=== PATIENT | male | born 1945 | race Caucasian/White ===

== ENCOUNTER 2019-06-01 20:17 | Inpatient (IN) ==
[2019-06-01 21:21] LABS: Apearance,Urine CLEAR (Clear); Bilirubin,Urine Negative (Negative); Blood, Urine Large mg/dL (Negative); Glucose,Urine (UA) >=500 mg/dL (Negative); Ketones,Urine Negative (Negative); Mucus,Urine Occasional /LPF (Occasional); Nitrite,Urine Negative (Negative); Protein,Urine Negative; RBC,Urine 9 /HPF (0-4); Sperm,Urine Occasional /HPF (Negative); Urine Color Yellow (Yellow); Urine Specific Gravity 1.024 (1.001-1.035); Urine Urobilinogen < 2.0 EU/DL (0.2-1.0); WBC,Urine <1 /HPF (0-6)
[2019-06-02] MEDS ORDERED: SODIUM CHLORIDE 0.9% 1,000 ML IV STA ×2 (00:53→01:39)
[2019-06-02] MEDS ORDERED: ACETAMINOPHEN 325 MG TABLET PO ONE (00:53)
[2019-06-02 01:15] LABS: Basophils % 0.6 % (0.0-0.8); Eosinophils % 0.6 % (0.00-10.9); Hematocrit 33.9 VOL% (42.0-52.0); Hemoglobin 11.7 GM/DL (14.0-18.0); Immature Granulocytes % 0.2 %; Immature Granulocytes Absolute 0.01 #; Lymphocytes # 0.6 10*3/uL (1.4-4.0); Lymphocytes % 8.9 % (21.2-54.2); Mean Corpuscular HGB Conc 34.5 GM/DL (32-36); Mean Corpuscular Volume 89.2 FL (87-102); Mean Platelet Volume 11.3 FL (9.6-12.0); Monocytes % 10.7 % (1.7-12.7); Red Cell Distribution Width 13.2 % (9.3-17.3); White Blood Count 6.4 T/CUMM (4-12)
[2019-06-02 01:24] LABS: Platelet Count 54 T/CUMM (130-400)
[2019-06-02 01:27] LABS: INR 1.2; PT Patient Result 13.1 SECS (9.6-12.2)
[2019-06-02 01:36] LABS: Albumin 2.9 G/DL (3.4-5.0); Bilirubin,Total 2.2 MG/DL (0.2-1.0); Calcium 8.4 MG/DL (8.5-10.1); Osmolality,Calculated 291.1 MOS/KG (273-304); Total Protein 7.6 G/DL (6.4-8.3)
[2019-06-02] MEDS ORDERED: INSULIN REGULAR 100 UNIT/ML IV STA (01:40)
[2019-06-02] MEDS ORDERED: LEVOFLOXACIN INJ 750 MG in PREMIX 1 EACH IV STA (01:49)
[2019-06-02] MEDS ORDERED: metroNIDAZOLE INJ 500 MG in PREMIX 1 EACH IV STA (01:49)
[2019-06-02] MEDS ORDERED: NALOXONE 0.4 MG/ML VIAL IV PRN (01:50)
[2019-06-02] MEDS ORDERED: GLUCAGON 1 MG VIAL IM PRN (01:50)
[2019-06-02] MEDS ORDERED: ACETAMINOPHEN 325 MG TABLET PO PRN (01:50)
[2019-06-02] MEDS ORDERED: DEXTROSE 10% 250 ML BAG IV PRN (01:50)
[2019-06-02] MEDS ORDERED: BISACODYL 5 MG TABLET PO PRN (01:50)
[2019-06-02] MEDS ORDERED: traMADol 50 MG TABLET PO PRN (01:50)
[2019-06-02] MEDS ORDERED: ONDANSETRON 4 MG/2 ML VIAL IV PRN (01:50)
[2019-06-02] MEDS ORDERED: PROMETHAZINE 25 MG/1 ML VIAL IM PRN (01:50)
[2019-06-02] MEDS ORDERED: HYDROmorphone 2 MG/1 ML VIAL IV PRN (01:50)
[2019-06-02 01:54] LABS: Platelet Estimate Decreased
[2019-06-02] MEDS ORDERED: MORPHINE 4 MG/1 ML VIAL IV ONE (01:54)
[2019-06-02] MEDS ORDERED: ONDANSETRON 4 MG/2 ML VIAL IV ONE (01:54)
[2019-06-02] MEDS: SODIUM CHLORIDE 0.9% 1,000 ML IV SCH ×4 (03:24→17:10)
[2019-06-02 05:07] LABS: Basophils % 0.6 % (0.0-0.8); Eosinophils % 0.6 % (0.00-10.9); Hematocrit 27.9 VOL% (42.0-52.0); Hemoglobin 9.6 GM/DL (14.0-18.0); Lymphocytes # 0.4 10*3/uL (1.4-4.0); Mean Corpuscular HGB Conc 34.4 GM/DL (32-36); Mean Corpuscular Volume 88.9 FL (87-102); Mean Platelet Volume 11.6 FL (9.6-12.0); Monocytes % 12.7 % (1.7-12.7); Neutrophils % 73.1 % (38.7-73.9); Red Blood Count 3.14 MC/CUMM (3.8-5.5); Red Cell Distribution Width 13.3 % (9.3-17.3); White Blood Count 3.3 T/CUMM (4-12)
[2019-06-02 05:11] LABS: Platelet Count 38 T/CUMM (130-400)
[2019-06-02 05:29] LABS: Albumin 2.2 G/DL (3.4-5.0); Bilirubin,Total 1.6 MG/DL (0.2-1.0); Calcium 7.6 MG/DL (8.5-10.1); Total Protein 6.1 G/DL (6.4-8.3)
[2019-06-02] MEDS ORDERED: SODIUM CHLORIDE 0.9% 1,000 ML IV PRN (05:39)
[2019-06-02 05:44] LABS: Platelet Estimate Decreased
[2019-06-02 05:46] LABS: Polychromasia Slight
[2019-06-02] MEDS: INSULIN REGULAR 100 UNIT/ML SUBCUT SCH ×4 (06:16→21:58)
[2019-06-02] MEDS: metroNIDAZOLE INJ 500 MG in PREMIX 1 EACH IV SCH ×3 (06:17→23:28)
[2019-06-02] MEDS: ALBUMIN 25% 12.5 GM in PREMIX 1 EACH IV SCH ×3 (07:23→23:12)
[2019-06-02 07:37] LABS: Basophils % 0.4 % (0.0-0.8); Eosinophils # 0.1 10*3/uL (0.0-0.87); Eosinophils % 1.9 % (0.00-10.9); Hematocrit 26.8 VOL% (42.0-52.0); Hemoglobin 9.2 GM/DL (14.0-18.0); Immature Granulocytes % 0.8 %; Immature Granulocytes Absolute 0.02 #; Lymphocytes # 0.5 10*3/uL (1.4-4.0); Lymphocytes % 17.9 % (21.2-54.2); Mean Corpuscular HGB Conc 34.3 GM/DL (32-36); Mean Platelet Volume 11.3 FL (9.6-12.0); Monocytes % 12.5 % (1.7-12.7); Neutrophils % 66.5 % (38.7-73.9); Red Blood Count 3.01 MC/CUMM (3.8-5.5); Red Cell Distribution Width 13.1 % (9.3-17.3); White Blood Count 2.6 T/CUMM (4-12)
[2019-06-02 07:41] LABS: Platelet Count 34 T/CUMM (130-400)
[2019-06-02 08:04] LABS: Albumin 2.2 G/DL (3.4-5.0); Bilirubin,Total 1.7 MG/DL (0.2-1.0); Calcium 7.4 MG/DL (8.5-10.1); Osmolality,Calculated 286.4 MOS/KG (273-304)
[2019-06-02 08:15] LABS: Platelet Estimate Decreased
[2019-06-02] MEDS: DOCUSATE SODIUM 100 MG CAPSULE PO SCH ×2 (08:52→21:58)
[2019-06-02] MEDS ORDERED: PANTOPRAZOLE 40 MG TABLET PO SCH (09:00)
[2019-06-02 12:15] LABS: Hematocrit 27.3 VOL% (42.0-52.0); Hemoglobin 9.4 GM/DL (14.0-18.0)
[2019-06-02] MEDS: lisinopriL 20 MG TABLET PO SCH (17:08)
[2019-06-02 18:01] LABS: Basophils % 0.9 % (0.0-0.8); Eosinophils # 0.1 10*3/uL (0.0-0.87); Eosinophils % 2.3 % (0.00-10.9); Hematocrit 26.6 VOL% (42.0-52.0); Hemoglobin 9.2 GM/DL (14.0-18.0); Immature Granulocytes % 0.5 %; Immature Granulocytes Absolute 0.01 #; Lymphocytes # 0.4 10*3/uL (1.4-4.0); Lymphocytes % 16.2 % (21.2-54.2); Mean Corpuscular HGB Conc 34.6 GM/DL (32-36); Mean Corpuscular Volume 89.6 FL (87-102); Mean Platelet Volume 10.4 FL (9.6-12.0); Monocytes % 11.7 % (1.7-12.7); Neutrophils % 68.4 % (38.7-73.9); Red Blood Count 2.97 MC/CUMM (3.8-5.5); Red Cell Distribution Width 12.9 % (9.3-17.3); White Blood Count 2.2 T/CUMM (4-12)
[2019-06-02 18:04] LABS: Platelet Count 35 T/CUMM (130-400)
[2019-06-02] MEDS: CIPROFLOXACIN INJ 400 MG in PREMIX 1 EACH IV SCH (21:55)
[2019-06-03] MEDS ORDERED: SODIUM CHLORIDE 0.9% 1,000 ML IV PRN (06:04)
[2019-06-03 06:44] LABS: Basophils % 1.1 % (0.0-0.8); Eosinophils % 2.2 % (0.00-10.9); Hematocrit 26.4 VOL% (42.0-52.0); Lymphocytes # 0.3 10*3/uL (1.4-4.0); Lymphocytes % 18.8 % (21.2-54.2); Mean Corpuscular HGB Conc 34.1 GM/DL (32-36); Mean Corpuscular Volume 89.5 FL (87-102); Mean Platelet Volume 10.8 FL (9.6-12.0); Monocytes % 9.9 % (1.7-12.7); Red Blood Count 2.95 MC/CUMM (3.8-5.5); Red Cell Distribution Width 12.9 % (9.3-17.3); White Blood Count 1.8 T/CUMM (4-12)
[2019-06-03 06:46] LABS: Platelet Count 42 T/CUMM (130-400)
[2019-06-03 07:08] LABS: Hypochromasia 1+; Ovalocytes Slight; Platelet Estimate Decreased
[2019-06-03 07:09] LABS: Albumin 2.5 G/DL (3.4-5.0); Bilirubin,Total 1.7 MG/DL (0.2-1.0); Calcium 7.6 MG/DL (8.5-10.1); Osmolality,Calculated 277.8 MOS/KG (273-304); Risk Ratio 2.66; Thyroid Stimulating Hormone 2.57 uIU/ml (0.358-3.74); Total Protein 6.2 G/DL (6.4-8.3); VLDL CHOLESTEROL 15.4 MG/DL
[2019-06-03] MEDS: metroNIDAZOLE INJ 500 MG in PREMIX 1 EACH IV SCH ×3 (07:19→22:19)
[2019-06-03] MEDS: ALBUMIN 25% 12.5 GM in PREMIX 1 EACH IV SCH ×3 (07:19→22:40)
[2019-06-03] MEDS: LEVOTHYROXINE 88 MCG TABLET PO SCH (07:19)
[2019-06-03] MEDS: SODIUM CHLORIDE 0.9% 1,000 ML IV SCH ×3 (07:20→17:05)
[2019-06-03] MEDS: INSULIN REGULAR 100 UNIT/ML SUBCUT SCH ×4 (08:06→21:11)
[2019-06-03] MEDS: CIPROFLOXACIN INJ 400 MG in PREMIX 1 EACH IV SCH ×2 (09:39→21:06)
[2019-06-03] MEDS: lisinopriL 20 MG TABLET PO SCH (09:39)
[2019-06-03] MEDS: TAMSULOSIN 0.4 MG CAPSULE PO SCH (09:39)
[2019-06-03] MEDS: DOCUSATE SODIUM 100 MG CAPSULE PO SCH ×2 (09:39→21:10)
[2019-06-04] MEDS: SODIUM CHLORIDE 0.9% 1,000 ML IV SCH ×2 (03:16→16:37)
[2019-06-04 04:55] LABS: Basophils % 1.3 % (0.0-0.8); Eosinophils # 0.1 10*3/uL (0.0-0.87); Eosinophils % 3.9 % (0.00-10.9); Hematocrit 25.2 VOL% (42.0-52.0); Immature Granulocytes % 0.7 %; Immature Granulocytes Absolute 0.01 #; Lymphocytes # 0.4 10*3/uL (1.4-4.0); Lymphocytes % 22.9 % (21.2-54.2); Mean Corpuscular HGB Conc 34.9 GM/DL (32-36); Mean Corpuscular Volume 88.1 FL (87-102); Mean Platelet Volume 11.1 FL (9.6-12.0); Monocytes % 11.8 % (1.7-12.7); Neutrophils % 59.4 % (38.7-73.9); Red Blood Count 2.86 MC/CUMM (3.8-5.5); Red Cell Distribution Width 12.6 % (9.3-17.3); White Blood Count 1.5 T/CUMM (4-12)
[2019-06-04 04:58] LABS: Hemoglobin 8.8 GM/DL (14.0-18.0); Platelet Count 44 T/CUMM (130-400)
[2019-06-04 05:21] LABS: Albumin 2.7 G/DL (3.4-5.0); Bilirubin,Total 1.7 MG/DL (0.2-1.0); Calcium 7.8 MG/DL (8.5-10.1); Osmolality,Calculated 283.3 MOS/KG (273-304); Total Protein 6.2 G/DL (6.4-8.3)
[2019-06-04 05:21] LABS: Eosinophils 7 % (0-10); Lymphocytes 10 % (20-55); Platelet Estimate Decreased; Polychromasia Few; Segmented Neutrophils 73 % (50-85); Total Cells Counted 100
[2019-06-04] MEDS: metroNIDAZOLE INJ 500 MG in PREMIX 1 EACH IV SCH ×3 (06:18→21:32)
[2019-06-04] MEDS: ALBUMIN 25% 12.5 GM in PREMIX 1 EACH IV SCH ×3 (06:18→21:40)
[2019-06-04] MEDS: LEVOTHYROXINE 88 MCG TABLET PO SCH (06:18)
[2019-06-04] MEDS: INSULIN REGULAR 100 UNIT/ML SUBCUT SCH (08:44)
[2019-06-04] MEDS ORDERED: CYANOCOBALAMIN 1000 MCG/1 ML VIAL IM ONE (09:00)
[2019-06-04] MEDS: lisinopriL 20 MG TABLET PO SCH (09:34)
[2019-06-04] MEDS: DOCUSATE SODIUM 100 MG CAPSULE PO SCH ×2 (09:34→20:17)
[2019-06-04] MEDS: TAMSULOSIN 0.4 MG CAPSULE PO SCH (09:34)
[2019-06-04] MEDS: CIPROFLOXACIN INJ 400 MG in PREMIX 1 EACH IV SCH ×2 (09:35→20:18)
[2019-06-05 04:53] LABS: Basophils % 1.4 % (0.0-0.8); Eosinophils # 0.1 10*3/uL (0.0-0.87); Hematocrit 24.9 VOL% (42.0-52.0); Hemoglobin 8.7 GM/DL (14.0-18.0); Immature Granulocytes % 0.7 %; Immature Granulocytes Absolute 0.01 #; Lymphocytes # 0.3 10*3/uL (1.4-4.0); Lymphocytes % 21.3 % (21.2-54.2); Mean Corpuscular HGB Conc 34.9 GM/DL (32-36); Mean Corpuscular Volume 88.3 FL (87-102); Monocytes % 11.3 % (1.7-12.7); Neutrophils % 60.3 % (38.7-73.9); Red Blood Count 2.82 MC/CUMM (3.8-5.5); White Blood Count 1.4 T/CUMM (4-12)
[2019-06-05 05:11] LABS: Platelet Count 48 T/CUMM (130-400)
[2019-06-05 05:17] LABS: Albumin 2.8 G/DL (3.4-5.0); Bilirubin,Total 1.1 MG/DL (0.2-1.0); Calcium 7.8 MG/DL (8.5-10.1); Hypochromasia 1+; Osmolality,Calculated 283.1 MOS/KG (273-304); Ovalocytes Slight; Platelet Estimate Decreased
[2019-06-05] MEDS: metroNIDAZOLE INJ 500 MG in PREMIX 1 EACH IV SCH (05:35)
[2019-06-05] MEDS: ALBUMIN 25% 12.5 GM in PREMIX 1 EACH IV SCH (05:36)
[2019-06-05] MEDS: LEVOTHYROXINE 88 MCG TABLET PO SCH (05:41)
[2019-06-05] MEDS: CIPROFLOXACIN INJ 400 MG in PREMIX 1 EACH IV SCH (09:36)
[2019-06-05] MEDS: lisinopriL 20 MG TABLET PO SCH (09:36)
[2019-06-05] MEDS: DOCUSATE SODIUM 100 MG CAPSULE PO SCH (09:36)
[2019-06-05] MEDS: TAMSULOSIN 0.4 MG CAPSULE PO SCH (09:36)
[2019-06-05] MEDS: SODIUM CHLORIDE 0.9% 1,000 ML IV SCH (09:37)
[2019-06-05 10:10] VITALS: BP 124/60
== END 2019-06-05 10:10 | disposition home or self-care (01) | DRG 378 ==
LOC: N.ED 20:17 → N.EDINP 06-02 01:50 → N.5E 06-02 02:19
PROVIDERS: ADMIT Internal Medicine; ATTEND Internal Medicine